=== PATIENT | male | born 1980 | race Caucasian/White ===

== ENCOUNTER → 2017-07-12 | Outpatient (CLI) | payer BC ==
--- NOTE | 2017-07-12 12:56 | CONS ---
CONSULTATION DATE OF SERVICE: 07/12/2016 A 36-year-old gentleman who has been evaluated in the [facility] for possible obstructive sleep apnea-hypopnea syndrome. HISTORY OF PRESENT ILLNESS\SLEEP WAKE EVALUATION: Patient usual sleep schedule on working days from 11 p.m. to 6 a.m. on weekend from 11p.m. to 7 a.m. Sometimes he has problem with falling asleep, but does have a TV in bedroom. He sleeps in different positions with his and has snoring and significant amount of sweating during the sleep, especially face and neck and he also has a dry mouth when he wakes up. In the morning he wakes up tired has difficulties to pay attention, has problems with memory concentration. [place] Sleepiness Scale is 6. Patient wakes up from sleep about 3 times. No history of hypnagogic hallucinations, sleep paralysis or cataplexy. PAST MEDICAL HISTORY: Positive for hyperlipidemia, seasonal allergy. PAST SURGICAL HISTORY: Vasectomy in 2018. MEDICATIONS: 1. Atorvastatin. 2. Fenofibrate. 3. Claritin. SOCIAL HISTORY: Positive for occasional smoking cigars. Alcohol consumption occasional. FAMILY HISTORY: Sleep apnea on treatment on CPAP by his brother, hypertension, heart problems, hyperlipidemia, lung problems, emphysema,in his name, headaches, acid reflux, mental illness. REVIEW OF SYSTEMS: Awakenings from sleep, sometimes tiredness and sleepiness during the day. PHYSICAL EXAM: gentleman without distress, BP 109/75, HR 66, RR 16, height 5, 11 weight 228, BMI 31.7, temperature 98.4. OROPHARYNX: Moderately low position of soft palate. Some restriction of nasal breathing. NECK: Wide, 18-1/2 inches in circumference. Neck Supple, no JVD. Thyroid is not palpable. LUNGS Clear to percussion and to auscultation. Good air exchange. No wheezing or rhonchi. HEART S1, S2 regular. No murmurs, gallops, or rubs. ABDOMEN Soft and nontender. Bowel sounds are present. No organomegaly appreciated. EXTREMITIES No clubbing or cyanosis. AMMUNITION STORAGE SUPERINTENDENT Awake, alert, and oriented X3. Cranial nerves 2 to 7 intact. There is no fasciculation or atrophy. noted. No focal deficits observed. IMPRESSION: 1. Snoring, multiple awakenings from sleep, some restriction of nasal breathing, wide neck, sweating of the face and neck during the sleep. Obstructive sleep apnea- hypopnea syndrome. 2. Mild obesity, body mass index 31.73. 3. Hyperlipidemia. 4. Seasonal allergy. 5. Status post vasectomy in 2018. PLAN: 1. Home sleep apnea test. 2. Following plan after reviewing results of home sleep apnea test. 3. Losing weight. 4. Sleep hygiene with regular time in bed for at least 8 hours. 5. No driving if feeling any sleepiness. Thank you very much for allowing me to participate in the management of your patient. Sincerely, Olivier Lopez MD, PhD, FAASM Diplomat of [employer] [place] [employer] [place] [employer] Media Specialist of [facility] [place] . MMODL / IJN: [id number] /
== END ==
LOC: SLEEP 11:12
PROVIDERS: ATTEND Internal Medicine
DX: G47.33 Obstructive sleep apnea (adult) (pediatric) (principal); R61 Generalized hyperhidrosis; E66.9 Obesity, unspecified; E78.5 Hyperlipidemia, unspecified; J30.2 Other seasonal allergic rhinitis; F17.210 Nicotine dependence, cigarettes, uncomplicated; Z98.52 Vasectomy status; Z79.899 Other long term (current) drug therapy; Z68.31 Body mass index [BMI] 31.0-31.9, adult
CPT/HCPCS: 99211

== ENCOUNTER → 2017-10-25 | Outpatient (CLI) | payer BC ==
--- NOTE | 2017-10-25 17:30 | PN ---
PROGRESS NOTE DATE OF SERVICE: 10/25/2017 A 37-year-old gentleman who has been followed in sleep center for discussion of results of the sleep studies. Recently, patient had 2 home sleep apnea tests. The first test on 07/17/2017 showed apnea-hypopnea index 2.4 with lowest oxygen level 89%. Second test showed apnea-hypopnea index 4.2. I asked the patient how he slept on both test. According to him, he basically slept all period of time when he had his equipment on. This did not show significant respiratory abnormalities. They are in the range of normal by today's criteria. [place] Sleepiness Scale today is a normal range, 4. MEDICATIONS: 1. Atorvastatin. 2. Fenofibrate. 3. Claritin. PHYSICAL EXAMINATION: GENERAL Patient in no distress. VITAL SIGNS BP 126/77, HR 72, RR 16, height 71 inches, weight 238.4 pounds, body mass index 33.1, oxygen saturation at room air 96%, temperature 99.2. HEENT PERRLA, EOMI, evaluation of oropharynx showed tongue protrudes midline, low position of soft palate. Neck Supple, no JVD. Thyroid is not palpable. LUNGS Clear to percussion and to auscultation. Good air exchange. No wheezing or rhonchi. HEART S1, S2 regular. No murmurs, gallops, or rubs. ABDOMEN Slightly obese, soft and nontender. Bowel sounds are present. No organomegaly appreciated. EXTREMITIES No clubbing or cyanosis. DIETITIAN TEACHER Awake, alert, and oriented X3. Cranial nerves 2 to 7 intact. There is no fasciculation or atrophy. noted. No focal deficits observed. IMPRESSION: 1. Very minimal changes of respiration during the home sleep apnea test within normal limits. 2. History of snoring. 3. Mild obesity, body mass index 31.73. 4. Hyperlipidemia. 5. Seasonal allergies. 6. Status post cholecystectomy in 2018. PLAN: 1. Sleep hygiene with regular rhythm bed for at least 7-1/2 hours. 2. Losing weight. 3. Preferable position during the sleep on the side and slightly up. 4. Precautions related to driving. No driving if feeling any sleepiness. Patient does not complain of any sleepiness. Thank you very much for allowing me to participate in the management of your patient. Sincerely, Olivier Lopez MD, PhD, FAASM Diplomat of [employer] of [facility] [place] MMODL / LILYN: [id number] /
== END | disposition home or self-care (01) ==
LOC: SLEEP 16:13
PROVIDERS: ATTEND Internal Medicine
DX: E66.9 Obesity, unspecified (principal); E78.5 Hyperlipidemia, unspecified; J30.2 Other seasonal allergic rhinitis; Z68.31 Body mass index [BMI] 31.0-31.9, adult; Z90.49 Acquired absence of other specified parts of digestive tract; Z79.899 Other long term (current) drug therapy

== ENCOUNTER 2021-10-25 10:55 | Emergency (ER) | payer BC ==
[2021-10-25 11:45] VITALS: BP 136/71; PULSE 119; RESP 20; TEMP 100
[2021-10-25] MEDS ORDERED: IBUPROFEN 800 MG TAB PO STA (12:31)
[2021-10-25] MEDS ORDERED: ACETAMINOPHEN TAB 500 MG TAB PO STA (12:31)
== END 2021-10-26 02:10 | disposition left against medical advice (07) ==
LOC: EC 10:55
DX: Z53.21 Procedure and treatment not carried out due to patient leaving prior to being seen by health care provider (principal)
CPT/HCPCS: 87635; 99499

== ENCOUNTER → 2021-12-05 | Outpatient (CLI) | payer BC ==
--- NOTE | 2021-12-05 13:55 | XR ---
EXAMINATION TYPE: XR chest 2V DATE OF EXAM: 12/05/2021 1:51 PM COMPARISON: None TECHNIQUE: XR chest 2V Frontal and lateral views of the chest. CLINICAL INDICATION:Male, 41 years old with history of R06.02 sob, R06.01 orthopnea, U09.9, U07.1; FINDINGS: Lungs/Pleura: There is no evidence of pleural effusion, focal consolidation, or pneumothorax. Pulmonary vascularity: Unremarkable. Heart/mediastinum: Cardiomediastinal silhouette is unremarkable. Musculoskeletal: No acute osseous pathology. IMPRESSION: No acute cardiopulmonary disease/process.
--- NOTE | 2021-12-05 18:01 | CA ---
Transthoracic Echo Report Name: Reza Flores Age: 41 Gender: M : 1980 Exam Date: 12/05/2021 14:15 Exam Location: [facility] Ht (in): 72 Wt (lb): 240 Ordering Physician: Jose Last MD Attending/Referring Phys: [id number], [employer] Lender Sujey Perez RDCS Procedure CPT: Indications: R06.02 sob, R06.01 orthopnea, U09.9, U07.1 Cardiac Hx: Technical Quality: Good Contrast 1: Total Dose (mL): Contrast 2: Total Dose (mL): MEASUREMENTS (Male / Female) Normal Values 2D ECHO LV Diastolic Diameter PLAX 5.0 cm 4.2 - 5.9 / 3.9 - 5.3 cm LV Systolic Diameter PLAX 2.9 cm IVS Diastolic Thickness 1.2 cm 0.6 - 1.0 / 0.6 - 0.9 cm LVPW Diastolic Thickness 1.2 cm 0.6 - 1.0 / 0.6 - 0.9 cm LV Relative Wall Thickness 0.5 RV Internal Dim ED PLAX 3.1 cm LA Systolic Diameter LX 3.7 cm 3.0 - 4.0 / 2.7 - 3.8 cm LA Volume 87.3 cm??? 18 - 58 / 22 - 52 cm??? M-MODE Aortic Root Diameter MM 3.2 cm LA Systolic Diameter MM 3.7 cm LA Ao Ratio MM 1.2 MV E Point Septal Separation 0.6 cm AV Cusp Separation MM 2.4 cm DOPPLER MV Area PHT 3.5 cm??? Mitral E Point Velocity 71.1 cm/s Mitral A Point Velocity 81.0 cm/s Mitral E to A Ratio 0.9 MV Deceleration Time 218.0 ms TR Peak Velocity 135.3 cm/s TR Peak Gradient 7.3 mmHg Right Ventricular Systolic Press 12.3 mmHg FINDINGS Left Ventricle Left ventricular ejection fraction is estimated at 55-60 %. Mildly increased left ventricular wall thickness. Right Ventricle Normal right ventricular size and function. Right Atrium Normal right atrial size. Left Atrium Severely increased left atrial volume. Mildly increased left atrial area. Mitral Valve Structurally normal mitral valve. Mild mitral regurgitation. Aortic Valve Trileaflet aortic valve. Tricuspid Valve Structurally normal tricuspid valve. Mild tricuspid regurgitation. Pulmonic Valve Structurally normal pulmonic valve. Pericardium Echo free space anterior to the right ventricle likely represents a fat pad. Aorta Normal size aortic root and proximal ascending aorta. CONCLUSIONS Normal left ventricular size and systolic function. Left atrium is enlarged. No clearcut pericardial effusion. Possible anterior fat pad. No significant abnormality on the Doppler exam. Mild mitral and tricuspid regurgitation noted. Previewed by: Dr. Sriram Valentino MD (Electronically Signed) Final Date: 05 December 2021 18:00
== END | disposition home or self-care (01) ==
LOC: RADECHMAIN 13:40
PROVIDERS: ATTEND Family Medicine
DX: I08.1 Rheumatic disorders of both mitral and tricuspid valves (principal); R06.02 Shortness of breath; R06.01 Orthopnea; U09.9 Post COVID-19 condition, unspecified; U07.1 COVID-19
CPT/HCPCS: 71046; 93306

== ENCOUNTER → 2022-09-20 | Outpatient (CLI) | payer BC ==
[2022-09-21 05:51] LABS: Alternaria alternata IgE <0.10 kU/L; Aspergillus fumagatus IgE <0.10 kU/L; Birch IgE <0.10 kU/L; Cat Epith & Dander IgE <0.10 kU/L; Dermato. farinae IgE <0.10 kU/L; Dog Dander IgE <0.10 kU/L; Elm IgE <0.10 kU/L; Oak IgE <0.10 kU/L; Ragweed,Common IgE <0.10 kU/L
[2022-09-21 14:43] LABS: Bermuda Grass IgE <0.10 kU/L (<0.10); Clad herbarum IgE <0.10 kU/L (<0.10); Clad herbarum IgE Class CLASS 0; Meadow Fescue IgE <0.10 kU/L (<0.10); Meadow Fescue IgE Class CLASS 0; Meadow Grs (KY blue) IgE <0.10 kU/L (<0.10); Meadow Grs (KY blue) IgE Class CLASS 0; Pecan IgE <0.10 kU/L (<0.10); Pecan IgE Class CLASS 0; Penicillium notatum IgE Class CLASS 0; Sycamore(Mpl.Lf) IgE <0.10 kU/L (<0.10); Sycamore(Mpl.Lf) IgE Class CLASS 0; Timothy Grass IgE <0.10 kU/L (<0.10); Timothy Grass IgE Class CLASS 0; Willow Tree IgE <0.10 kU/L (<0.10); Willow Tree IgE Class CLASS 0
[2022-09-21 14:44] LABS: Beech IgE <0.10 kU/L (<0.10); Beech IgE Class CLASS 0; Cottonwood IgE <0.10 kU/L (<0.10); Goldenrod IgE <0.10 kU/L (<0.10); Goldenrod IgE Class CLASS 0; Lamb's Quarter IgE <0.10 kU/L (<0.10); Lamb's Quarter IgE Class CLASS 0; Ragweed, Giant IgE <0.10 kU/L (<0.10); Ragweed, Giant IgE Class CLASS 0; Sheep Sorrel IgE <0.10 kU/L (<0.10); Sheep Sorrel IgE Class CLASS 0
[2022-09-21 14:45] LABS: English Plantain IgE Class CLASS 0
== END | disposition home or self-care (01) ==
LOC: LABWHC1 15:56
PROVIDERS: ATTEND Internal Medicine
DX: J31.0 Chronic rhinitis (principal)
CPT/HCPCS: 36415; 86003

== ENCOUNTER 2022-09-28 10:44 | Emergency (ER) | payer BC ==
[2022-09-28] MEDS ORDERED: IPRATROPIUM-ALBUTEROL 3 ML NEB INHALATION STA (11:03)
--- NOTE | 2022-09-28 11:05 | ED ---
General Adult HPI - General Chief complaint: Shortness of Breath Stated complaint: SOB Time Seen by Provider: 09/28/22 10:57 Source: patient, RN notes reviewed Mode of arrival: wheelchair Limitations: no limitations - History of Present Illness Initial comments: Patient is a pleasant 42-year-old male presenting to the emergency department with concerns for shortness of breath. Patient states he's been diagnosed with asthma since having COVID-19 infection 1 year ago. Patient does have a history of childhood asthma. Patient states his breathing seemed a little bit worse today. Patient did try his inhaler once without much improvement. No cough. No fever. No chest pain. No leg pain or leg swelling. - Related Data Home Medications Medication Instructions Recorded Confirmed Dextroamphetamine/Amphetamine 30 mg PO DAILY PRN 09/28/22 09/28/22 [Adderall] Montelukast [Singulair] 10 mg PO DAILY 09/28/22 09/28/22 Previous Rx's Medication Instructions Recorded predniSONE [Deltasone] 20 mg PO BID #10 tab 09/28/22 Allergies Allergy/AdvReac Type Severity Reaction Status Date / Time No Known Allergies Allergy Verified 09/28/22 13:39 Review of Systems ROS Statement: Those systems with pertinent positive or pertinent negative responses have been documented in the HPI. ROS Other: All systems not noted in ROS Statement are negative. Constitutional: Denies: fever Eyes: Denies: eye pain ENT: Denies: ear pain Respiratory: Reports: as per HPI, dyspnea Cardiovascular: Denies: chest pain Endocrine: Denies: fatigue Gastrointestinal: Denies: abdominal pain Genitourinary: Denies: dysuria Musculoskeletal: Denies: back pain Skin: Denies: rash Neurological: Denies: weakness Past Medical History Past Medical History: Asthma History of Any Multi-Drug Resistant Organisms: None Reported Past Surgical History: No Surgical Hx Reported Past Psychological History: No Psychological Hx Reported Smoking Status: Current some day smoker Past Alcohol Use History: None Reported, Occasional Past Drug Use History: None Reported General Exam Limitations: no limitations General appearance: alert, in no apparent distress Head exam: Present: normocephalic Eye exam: Present: normal appearance Neck exam: Present: normal inspection Respiratory exam: Present: wheezes (Minimal expiratory) Cardiovascular Exam: Present: regular rate, normal rhythm GI/Abdominal exam: Present: soft. Absent: tenderness Extremities exam: Present: normal inspection. Absent: pedal edema, calf te nderness Neurological exam: Present: alert Psychiatric exam: Present: normal affect, normal mood Skin exam: Present: normal color Course Vital Signs 09/28/22 09/28/22 09/28/22 10:52 11:39 11:45 Temperature 98.7 F Pulse Rate 84 76 78 Respiratory 18 14 Rate Blood Pressure 142/83 O2 Sat by Pulse 97 Oximetry 09/28/22 12:58 Temperature Pulse Rate Respiratory 18 Rate Blood Pressure O2 Sat by Pulse Oximetry EKG Findings - EKG Results: EKG: interpreted by ERMD, sinus rhythm, normal axis, normal QRS, normal ST/T Medical Decision Making - Medical Decision Making Was pt. sent in by a medical professional or institution (, PA, MULTISENSOR INTELLIGENCE OFFICER, urgent care, hospital, or fpc...) When possible be specific @ -No Did you speak to anyone other than the patient for history (EMS, parent, family, police, friend...)? What history was obtained from this source @ -No Did you review nursing and triage notes (agree or disagree)? Why? @ -I reviewed and agree with nursing and triage notes Were old charts reviewed (outside hosp., previous admission, EMS record, old EKG, old radiological studies, urgent care reports/EKG's, fpc records)? Report findings @ -Previous chest x-ray reviewed with similar findings Differential Diagnosis (chest pain, altered mental status, abdominal pain women, abdominal pain men, vaginal bleeding, weakness, fever, dyspnea, syncope, headache, dizziness, GI bleed, back pain, seizure, CVA, palpatations, mental health, musculoskeletal)? @ -Differential Dyspnea: Coronary syndrome, arrhythmia, tamponade, asthma, COPD, pulmonary embolism, pneumonia, pneumothorax, pulmonary effusion, anaphylaxis, diabetic ketoacidosis, flailed chest, pulmonary contusion, diaphragmatic rupture, anemia, neuromuscular, this is not meant to be an all-inclusive list. EKG interpreted by me (3pts min.). @ -As above X-rays interpreted by me (1pt min.). @ -Chest x-ray shows no acute process CT interpreted by me (1pt min.). @ -None done U/S interpreted by me (1pt. min.). @ -None done What testing was considered but not performed or refused? (CT, X-rays, U/S, labs)? Why? @ -None What meds were considered but not given or refused? Why? @ -None Did you discuss the management of the patient with other professionals (professionals i.e. , PA, MULTISENSOR INTELLIGENCE OFFICER, lab, RT, psych nurse, social studies teacher, merit system director, teacher, seismology technical officer, test case developer)? Give summary @ -No Was smoking cessation discussed for >3mins.? @ -No Was critical care preformed (if so, how long)? @ -No Were there social determinants of health that impacted care today? How? (Homelessness, low income, unemployed, alcoholism, drug addiction, transportation, low edu. Level, literacy, decrease access to med. care, assisted, rehab)? @ -No Was there de-escalation of care discussed even if they declined (Discuss DNR or withdrawal of care, Hospice)? DNR status @ -No What co-morbidities impacted this encounter? (DM, HTN, Smoking, COPD, CAD, Cancer, CVA, ARF, Chemo, Hep., AIDS, mental health diagnosis, sleep apnea, morbid obesity)? @ -None Was patient admitted / discharged? Hospital course, mention meds given and route, prescriptions, significant lab abnormalities, going to OR and other pertinent info. @ -Patient reevaluated and is further improved. Patient updated on results. Patient offered admission however does not feel necessary. Patient states symptoms have actually been going on for months and has seen cardiology as well as pro shop attendant for this. Patient will be discharged and recommended follow-up pulmonary. Patient will is agreeable for trial of short course of steroids. Patient states she does have inhaler at home. Undiagnosed new problem with uncertain prognosis? @ -No Drug Therapy requiring intensive monitoring for toxicity (Heparin, Nitro, Insulin, Cardizem)? @ -No Were any procedures done? @ -No Diagnosis/symptom? @ -Dyspnea Acute, or Chronic, or Acute on Chronic? @ -Acute on chronic Uncomplicated (without systemic symptoms) or Complicated (systemic symptoms)? @ -default Side effects of treatment? @ -No Exacerbation, Progression, or Severe Exacerbation? @ -No Poses a threat to life or bodily function? How? (Chest pain, USA, VT, pneumonia, PE, COPD, DKA, ARF, appy, cholecystitis, CVA, Diverticulitis, Homicidal, Suicidal, threat to staff... and all critical care pts) @ -No - Lab Data Result diagrams: 09/28/22 12:33 09/28/22 12:33 Lab Results 09/28/22 09/28/22 09/28/22 Range/Units 12:33 12:33 12:33 WBC 6.0 (3.8-10.6) k/uL RBC 4.67 (4.30-5.90) m/uL Hgb 15.5 (13.0-17.5) gm/dL Hct 42.3 (39.0-53.0) % MCV 90.6 (80.0-100.0) fL MCH 33.3 (25.0-35.0) pg MCHC 36.7 (31.0-37.0) g/dL RDW 12.3 (11.5-15.5) % Plt Count 189 (150-450) k/uL MPV 7.8 Neutrophils % 56 % Lymphocytes % 34 % Monocytes % 6 % Eosinophils % 2 % Basophils % 1 % Neutrophils # 3.4 (1.3-7.7) k/uL Lymphocytes # 2.0 (1.0-4.8) k/uL Monocytes # 0.4 (0-1.0) k/uL Eosinophils # 0.1 (0-0.7) k/uL Basophils # 0.1 (0-0.2) k/uL PT (9.0-12.0) sec INR (<1.2) APTT (22.0-30.0) sec D-Dimer (<0.60) mg/L FEU Sodium 140 (137-145) mmol/L Potassium 3.6 (3.5-5.1) mmol/L Chloride 103 (98-107) mmol/L Carbon Dioxide 26 (22-30) mmol/L Anion Gap 11 mmol/L BUN 16 (9-20) mg/dL Creatinine 0.86 (0.66-1.25) mg/dL Est GFR (CKD-EPI)AfAm >90 (>60 ml/min/1.73 sqM) Est GFR (CKD-EPI)NonAf >90 (>60 ml/min/1.73 sqM) Glucose 100 H (74-99) mg/dL Plasma Lactic Acid Dandre 1.2 (0.7-2.0) mmol/L Calcium 9.5 (8.4-10.2) mg/dL Magnesium 1.9 (1.6-2.3) mg/dL Total Bilirubin 0.8 (0.2-1.3) mg/dL AST 27 (17-59) U/L ALT 31 (4-49) U/L Alkaline Phosphatase 58 (38-126) U/L Troponin I (0.000-0.034) ng/mL NT-Pro-B Natriuret Pep <20 pg/mL Total Protein 7.6 (6.3-8.2) g/dL Albumin 4.9 (3.5-5.0) g/dL 09/28/22 09/28/22 Range/Units 12:33 13:30 WBC (3.8-10.6) k/uL RBC (4.30-5.90) m/uL Hgb (13.0-17.5) gm/dL Hct (39.0-53.0) % MCV (80.0-100.0) fL MCH (25.0-35.0) pg MCHC (31.0-37.0) g/dL RDW (11.5-15.5) % Plt Count (150-450) k/uL MPV Neutrophils % % Lymphocytes % % Monocytes % % Eosinophils % % Basophils % % Neutrophils # (1.3-7.7) k/uL Lymphocytes # (1.0-4.8) k/uL Monocytes # (0-1.0) k/uL Eosinophils # (0-0.7) k/uL Basophils # (0-0.2) k/uL PT 10.7 (9.0-12.0) sec INR 1.0 (<1.2) APTT 24.2 (22.0-30.0) sec D-Dimer <0.17 (<0.60) mg/L FEU Sodium (137-145) mmol/L Potassium (3.5-5.1) mmol/L Chloride (98-107) mmol/L Carbon Dioxide (22-30) mmol/L Anion Gap mmol/L BUN (9-20) mg/dL Creatinine (0.66-1.25) mg/dL Est GFR (CKD-EPI)AfAm (>60 ml/min/1.73 sqM) Est GFR (CKD-EPI)NonAf (>60 ml/min/1.73 sqM) Glucose (74-99) mg/dL Plasma Lactic Acid Dandre (0.7-2.0) mmol/L Calcium (8.4-10.2) mg/dL Magnesium (1.6-2.3) mg/dL Total Bilirubin (0.2-1.3) mg/dL AST (17-59) U/L ALT (4-49) U/L Alkaline Phosphatase (38-126) U/L Troponin I <0.012 (0.000-0.034) ng/mL NT-Pro-B Natriuret Pep pg/mL Total Protein (6.3-8.2) g/dL Albumin (3.5-5.0) g/dL Disposition Clinical Impression: Dyspnea Disposition: HOME SELF-CARE Condition: Stable Instructions (If sedation given, give patient instructions): Dyspnea (ED) Additional Instructions: Prescriptions at the pharmacy. Please do follow-up with primary care physician in the next day or 2 for recheck. Please also follow-up with pulmonary, number provided. Return for fever, difficult to breathing, chest pain, leg pain or leg swelling, worsening symptoms or other concerns. Prescriptions: predniSONE [Deltasone] 20 mg PO BID #10 tab Is patient prescribed a controlled substance at d/c from ED?: No Referrals: Jose Last III, MD [Primary Care Provider] - 1-2 days Stefano Sutherland MD [STAFF PHYSICIAN] - 1-2 days Time of Disposition: 14:36
--- NOTE | 2022-09-28 11:39 | XR ---
EXAMINATION TYPE: XR chest 2V DATE OF EXAM: 09/28/2022 11:35 AM COMPARISON: Chest radiographs from 12/05/2021 TECHNIQUE: XR chest 2V Frontal and lateral views of the chest. CLINICAL INDICATION:Male, 42 years old with history of dyspnea; FINDINGS: Lungs/Pleura: There is no evidence of pleural effusion, focal consolidation, or pneumothorax. Pulmonary vascularity: Unremarkable. Heart/mediastinum: Cardiomediastinal silhouette is unremarkable. Musculoskeletal: No acute osseous pathology. IMPRESSION: No acute cardiopulmonary disease/process.
[2022-09-28 12:43] LABS: Basophils # (A) 0.1 k/uL (0-0.2); Basophils % (A) 1 %; Eosinophils # (A) 0.1 k/uL (0-0.7); Eosinophils % (A) 2 %; HCT 42.3 % (39.0-53.0); HGB 15.5 gm/dL (13.0-17.5); Lymphocytes % (A) 34 %; MCH 33.3 pg (25.0-35.0); MCHC 36.7 g/dL (31.0-37.0); MCV 90.6 fL (80.0-100.0); Mean Platelet Volume 7.8; Monocytes # (A) 0.4 k/uL (0-1.0); Monocytes % (A) 6 %; Neutrophils # (A) 3.4 k/uL (1.3-7.7); Neutrophils % (A) 56 %; Platelet Count 189 k/uL (150-450); RBC 4.67 m/uL (4.30-5.90); RDW 12.3 % (11.5-15.5)
[2022-09-28 12:59] VITALS: RESP 18
[2022-09-28 12:59] LABS: ALT 31 U/L (4-49); AST 27 U/L (17-59); African American GFR (CKD) >90 (>60 ml/min/1.73 sqM); Albumin 4.9 g/dL (3.5-5.0); Alkaline Phosphatase 58 U/L (38-126); Anion Gap 11 mmol/L; Blood Urea Nitrogen 16 mg/dL (9-20); Calcium 9.5 mg/dL (8.4-10.2); Carbon Dioxide 26 mmol/L (22-30); Chloride 103 mmol/L (98-107); Glucose 100 mg/dL (74-99); Magnesium 1.9 mg/dL (1.6-2.3); Non-African American GFR(CKD) >90 (>60 ml/min/1.73 sqM); Potassium 3.6 mmol/L (3.5-5.1); Sodium 140 mmol/L (137-145); Total Bilirubin 0.8 mg/dL (0.2-1.3); Total Protein 7.6 g/dL (6.3-8.2)
[2022-09-28 13:04] LABS: NT-Pro-B-Type Natriuretic Pept <20 pg/mL
[2022-09-28 13:53] LABS: Partial Thromboplastin Time 24.2 sec (22.0-30.0); Prothrombin Time 10.7 sec (9.0-12.0)
[2022-09-28 14:52] VITALS: BP 115/76; PULSE 67; TEMP 98.6
== END 2022-09-28 14:54 | disposition home or self-care (01) ==
LOC: EC 10:44
DX: R06.00 Dyspnea, unspecified (principal); J45.909 Unspecified asthma, uncomplicated; F17.200 Nicotine dependence, unspecified, uncomplicated; Z79.899 Other long term (current) drug therapy
CPT/HCPCS: 36415; 71046; 80053; 83605; 83735; 83880; 84484; 85025; 85379; 85610; 85730; 93005; 94640; 99285